=== PATIENT | male | born 1985 | race Caucasian/White ===

== ENCOUNTER 2023-11-24 16:58 | Outpatient (CLI) | payer BC, SELFPAY | END 2023-11-24 16:59 | disposition home or self-care (01) | PROVIDERS: Visit Provider Physician Assistant | DX: L02.91 Cutaneous abscess, unspecified (principal) | CPT/HCPCS: 87070 ==

== ENCOUNTER 2024-01-01 08:27 | Outpatient (CLI) | payer BC, SELFPAY | END 2024-01-01 08:28 | disposition home or self-care (01) | PROVIDERS: PCP Nurse Practitioner Family; Visit Provider Nurse Practitioner Family | DX: Z00.00 Encounter for general adult medical examination without abnormal findings (principal); I10 Essential (primary) hypertension; Z13.6 Encounter for screening for cardiovascular disorders | CPT/HCPCS: 80053; 80061 ==

== ENCOUNTER 2024-06-07 10:05 | Outpatient (CLI) | payer BC, SELFPAY | END 2024-06-07 10:06 | disposition home or self-care (01) | PROVIDERS: PCP Nurse Practitioner Family; Visit Provider Nurse Practitioner Family | DX: M79.674 Pain in right toe(s) (principal); Z82.69 Family history of other diseases of the musculoskeletal system and connective tissue | CPT/HCPCS: 80048; 84550; 85651; 86140 ==